=== PATIENT | female | born 1960 | race Hispanic/Latino ===

== ENCOUNTER 2020-07-22 11:53 | Emergency (ER) | payer OTHER, MEDICARE | END 2020-07-22 13:50 | disposition home or self-care (01) | LOC: EDH 11:53 | DX: B34.9 Viral infection, unspecified (principal); J02.9 Acute pharyngitis, unspecified; Z20.828 Contact with and (suspected) exposure to other viral communicable diseases; E11.9 Type 2 diabetes mellitus without complications; I10 Essential (primary) hypertension; E78.00 Pure hypercholesterolemia, unspecified; E07.9 Disorder of thyroid, unspecified; Z98.890 Other specified postprocedural states | CPT/HCPCS: 71045; 87426; 87804 ×2; 99284; U0003 ==